=== PATIENT | male | born 1945 | race Caucasian/White ===

== ENCOUNTER 2017-06-30 13:19 | Emergency (ER) | payer MEDICARE ==
[~2017-06-30] VITALS: Ht 167.6 cm; Wt 57.2 kg
--- NOTE | ~2017-06-30 | EKG ---
[place], [place] ELECTROCARDIOGRAM REPORT NAME: MARCIA BOOTH UNIT #: [id number] ROOM: DOCTOR: KARLIE WETZEL,EVERETT BIRTHDATE: [birth year] DOS: 06/30/2017 TIME: 1434 Hours. IMPRESSION: 1. Sinus rhythm. 2. Baseline artifact. 3. Supraventricular ectopy. 4. Normal QT interval. 5. Nondiagnostic ST elevation due to baseline artifact. EVERETT ZIEGLER MD CM:EKGRPT:ELECTROCARDIOGRAM REPORT [id number] EVERETT ZIEGLER MD
--- NOTE | ~2017-06-30 | EKG ---
[place], [place] ELECTROCARDIOGRAM REPORT NAME: MARCIA BOOTH UNIT #: [id number] ROOM: DOCTOR: KARLIE WETZEL,EVERETT BIRTHDATE: [birth year] DOS: 06/30/2017 TIME: 1434 hours. IMPRESSION: 1. Sinus rhythm. 2. Supraventricular ectopy. 3. ST-T changes. EVERETT ZIEGLER MD CM:EKGRPT:ELECTROCARDIOGRAM REPORT [id number] EVERETT ZIEGLER MD
[~2017-06-30 13:19] MED LIST: ALENDRONATE SOD70 M1 PO; HYDROCODONE BIT1 T11 PO; LISINOPRIL5 MG PO; ULTRAM50 MG PO
[2017-06-30 13:20] VITALS: BP 133/54
[2017-06-30 14:16] LABS: BASO % 0.1 % (0.0-1.0); HEMATOCRIT 35.8 % (42.0-52.0); HEMOGLOBIN 11.8 g/dl (14.0-18.0); LYMPH # 0.3 10*3/uL (1.3-4.4); LYMPH % 3.2 % (27.0-41.0); MEAN CELL VOLUME 89.7 fl (80.0-94.0); MEAN CORPUSCULAR HGB 29.6 pg (27.0-31.0); MEAN PLATELET VOLUME 9.3 fl (9.6-12.3); MONO # 1.1 10*3/uL (0.1-1.0); MONO % 12.3 % (3.0-9.0); NEUT # 7.5 10*3/uL (2.3-7.9); NEUT % 83.6 % (47.0-73.0); PLATELET COUNT AUTOMATED 210 10*3/uL (130-400); RED BLOOD COUNT 3.99 10*6/uL (4.50-5.90); RED CELL DISTRI WIDTH 13.6 % (0-14.5)
[2017-06-30 14:25] LABS: ACT PARTIAL THROMBO TIME 23.9 SECONDS (20.8-31.5); INTERNATIONAL NORM RATIO 0.9 (2.0-3.5)
[2017-06-30 14:27] VITALS: BP 122/70
[2017-06-30 14:35] LABS: ALBUMIN 3.3 gm/dl (3.1-4.5); CREATININE 1.56 mg/dL (0.70-1.30); POTASSIUM 3.8 mmol/L (3.5-5.1); TOTAL PROTEIN 7.3 gm/dL (6.4-8.2)
[2017-06-30 14:40] LABS: TROPONIN I 0.055 ng/ml (<0.045)
[2017-06-30 16:11] VITALS: BP 110/70
== END 2017-06-30 18:45 | disposition short-term general hospital (02) ==
LOC: ED 13:19 → EDHOLD 15:16 → ED 15:16
PROVIDERS: Emergency Medicine
DX: S12.591A Other nondisplaced fracture of sixth cervical vertebra, initial encounter for closed fracture (principal); S20.211A Contusion of right front wall of thorax, initial encounter; S70.211A Abrasion, right hip, initial encounter; T79.6XXA Traumatic ischemia of muscle, initial encounter; R79.89 Other specified abnormal findings of blood chemistry; R29.6 Repeated falls; Z79.899 Other long term (current) drug therapy; Z87.891 Personal history of nicotine dependence; W19.XXXA Unspecified fall, initial encounter; Y93.89 Activity, other specified; Y92.099 Unspecified place in other non-institutional residence as the place of occurrence of the external cause; Y99.9 Unspecified external cause status

== ENCOUNTER 2017-07-20 03:10 | Emergency (ER) | payer MEDICARE ==
[~2017-07-20] VITALS: Wt 86.2 kg
== END 2017-07-20 05:58 | disposition home or self-care (01) ==
LOC: ED 03:10
DX: S01.81XA Laceration without foreign body of other part of head, initial encounter (principal); S09.90XA Unspecified injury of head, initial encounter; Z79.899 Other long term (current) drug therapy; W19.XXXA Unspecified fall, initial encounter; Y93.89 Activity, other specified; Y92.098 Other place in other non-institutional residence as the place of occurrence of the external cause; Y99.8 Other external cause status